=== PATIENT | male | born 1970 | race Caucasian/White ===

== ENCOUNTER 2022-06-01 08:16 | Outpatient (CLI) | payer OTHER, SELFPAY ==
[2022-06-01 14:46] LABS: Chloride* 105 mmol/L (96-114); Potassium* 4.5 mmol/L (3.6-5.1); Sodium* 138 mmol/L (135-149)
[2022-06-01 14:49] LABS: Blood Urea Nitrogen* 17 mg/dL (7-30); Calcium* 9.4 mg/dL (8.4-10.6); Carbon Dioxide* 28 mmol/L (20-32); Cholesterol* 156 mg/dL (90-199); Estimated Glomerular Filt Rate 91 ml/min; Glucose* 97 mg/dL (60-115); Triglycerides* 167 mg/dL (40-149)
[2022-06-01 14:50] LABS: HDL Cholesterol* 33 mg/dL (>=40); LDL Cholesterol Calculated 90 mg/dL (<100)
== END 2022-06-01 08:17 | disposition home or self-care (01) ==
PROVIDERS: PCP Family Medicine; Visit Provider Family Medicine
DX: I10 Essential (primary) hypertension (principal); E78.5 Hyperlipidemia, unspecified
CPT/HCPCS: 80048; 80061

== ENCOUNTER 2023-04-05 11:15 | Outpatient (CLI) | payer OTHER, SELFPAY | END 2023-04-05 11:16 | disposition home or self-care (01) | PROVIDERS: PCP Family Medicine; Visit Provider Family Medicine | DX: I10 Essential (primary) hypertension (principal); E78.5 Hyperlipidemia, unspecified; M10.9 Gout, unspecified | CPT/HCPCS: 80048; 80061; 84550 ==

== ENCOUNTER 2024-03-25 13:43 | Outpatient (CLI) | payer OTHER, SELFPAY | END 2024-03-25 13:44 | disposition home or self-care (01) | PROVIDERS: PCP Family Medicine; Visit Provider Family Medicine | DX: E78.2 Mixed hyperlipidemia (principal); I10 Essential (primary) hypertension; Z12.5 Encounter for screening for malignant neoplasm of prostate | CPT/HCPCS: 80048; 80061; G0103 ==

== ENCOUNTER 2025-03-12 09:19 | Outpatient (CLI) | payer OTHER, SELFPAY | END 2025-03-12 09:20 | disposition home or self-care (01) | PROVIDERS: PCP Family Medicine; Visit Provider Family Medicine | DX: I10 Essential (primary) hypertension (principal); E78.5 Hyperlipidemia, unspecified | CPT/HCPCS: 80053; 80061 ==